=== PATIENT | female | born 1990 | race Caucasian/White ===

== ENCOUNTER 2016-10-26 21:09 | Emergency (ER) | payer MEDICAID, OTHER ==
[2016-10-26] MEDS ORDERED: Sodium Chloride 0.9% 1,000 ML IV ONE (21:28)
--- NOTE | 2016-10-26 21:28 | ED Physician Chart ---
Chief Complaint/HPI - Patient Information Date Seen:: 10/26/16 Time Seen:: 21:20 Chief Complaint:: Flank Pain History of Present Illness:: onset x 3 days of intermittent bilateral, crampy type flank pain radiating to the Abdomen with nausea; pt is 6 weeks ; pt denies H/As, Neck Pain, C/P , SOB, cough, Abd. Pain, pelvic pain, vaginal bleeding or discharge, A/V/D/C, fever, chills, or urinary s/s Historian:: Patient Review:: Nurse's Note Reviewed Review of Systems - Review of Systems General/Constitutional: Fever, Chills, No weight loss, No weakness, No diaphoresis, No edema, No loss of appetite Skin: No skin lesions, No rash, No bruising Head: No headache, No light-headedness Eyes: No loss of vision, No pain, No diplopia ENT: No earache, No nasal drainage, No sore throat, No tinnitus Neck: No neck pain, No swelling, No thyromegaly, No stiffness, No mass noted Cardio Vascular: No chest pain, No palpitations, No PND, No orthopnea, No edema Pulmonary: No SOB, No cough, No sputum, No wheezing GI: Nausea, Vomiting, Diarrhea, Pain, No melena, No hematochezia, Constipation, No hematemesis G/U: No dysuria, Frequency, No hematuria Reactor Technician: No vaginal discharge, No abnormal vaginal bleed, No contraction Musculoskeletal: No bone or joint pain, No back pain, No muscle pain Endocrine: No polyuria, No polydipsia Psychiatric: No prior psych history, No depression, No anxiety, No suicidal ideation, No homicidal ideation, No auditory hallucination, No visual hallucination Hematopoietic: No bruising, No lymphadenopathy Allergic/Immuno: No urticaria, No angioedema Neurological: No syncope, No focal symptoms, No weakness, No paresthesia, No headache, No seizure, No dizziness, No confusion, No vertigo Past Medical History - Past Medical History Obtainable: Yes Past Medical History: No significant medical hx Family History: HTN Social History: Non Smoker, No Alcohol, No Drug Use, Single Surgical History: other (Right Ovarian Cysts Removal) Psychiatricy History: None Medication: Reviewed Family Medical History - Family Member Mother History Unknown: Yes Physical Exam - Physical Examination General/Constitutional: Awake, Well-developed, well-nourished, Alert, No distress, GCS 15, Non-toxic appearing, Ambulatory Head: Atraumatic Eyes: Lids, conjuctiva normal, PERRL, EOMI Skin: Nl inspection, No rash, No skin lesions, No ecchymosis, Well hydrated, No lymphadenopathy ENMT: External ears, nose nl, Nasal exam nl, Lips, teeth, gums nl Neck: Nontender, Full ROM w/o pain, No JVD, No nuchal rigidity, No bruit, No mass, No stridor Respiratory: Nl effort/Exclusion, Clear to Auscultation, No Wheeze/Rhonchi/Rales Cardio Vascular: RRR, No murmur, gallop, rubs, NL S1 S2 GI: No tenderness/rebounding/guarding, No organomegaly, No hernia, Normal BS's, Nondistended, No mass/bruits, No McBurney tenderness : No CVA tenderness Extremities: No tenderness or effusion, Full ROM, normal strength in all extremities, No edema, Normal digits & nails Neuro/Psych: Alert/oriented, DTR's symmetric, Normal sensory exam, Normal motor strength, Judgement/insight normal, Mood normal, Normal gait, No focal deficits Misc: normal gait, Normal back, No paraspinal tenderness Labs/Radiology/EKG Results - Lab Results Results: U/A: + Leukocytes; + WBCs; + RBC, trace Blood - Radiology Results Results: + Twin ED Septic Shock - . Is Septic Shock (SBP<90, OR Lactate>4 mmol\L) present?: No Reassessment (Disposition) - Reassessment Reassessment:: pt is asymptomatic upon discharge Reassessment Condition:: Improved - Diagnosis Diagnosis:: UTI; ; Abdominal Pain/Flank/Back Pain-Resolved; Nephrolithiasis; Renal Calculi; Hematuria; Cystitis - Aftercare/Follow up Instructions Aftercare/Follow-Up Instructions:: Counseled pt regarding lab results/diagnosis & need follow up, Refer to Discharge Instructions, Counseled pt & family regarding lab results/diagnosis & need follow up Medication Prescribed:: Rx: Macrobid 100mg po bid x 10 days; Strain all Urine; Urine Strainer - Patient Disposition Discharge/Transfer:: Home Condition at Disposition:: Stable, Improved (RTER prn if existing s/s reoccur and/or get worse and/or any other new s/s occur; U/S care Instructions; ACIs given for all above Dx; Refer to OB-PRESTIDIGITATOR / Specialists/Field Operations Farm Manager LORRAINE; F/U with PMD in one day or prn; RTER prn if concerned)
[2016-10-26 21:45] LABS: % BASOPHILS 0.4 % (0.0-2.0); % EOSINOPHILS 2.1 % (0.0-5.0); % LYMPHOCYTES 30.4 % (20.0-50.0); % MONOCYTES 8.3 % (2.0-10.0); % NEUTROPHILS 58.8 % (40.0-80.0); HEMATOCRIT 40.2 % (35.0-45.0); HEMOGLOBIN 13.5 gm/dL (11.7-15.5); MEAN CELL VOLUME 82.7 fl (81-100); MEAN CORPUSCULAR HEMOGLOBIN 27.7 pg (27.0-31.0); MEAN CORPUSCULAR HGB CONC 33.5 pg (28.0-36.0); MEAN PLATELET VOLUME 9.3 fl; NEUTROPHILE ABSOLUTE 6.9 Th/cmm (1.8-8.0); PLATELET COUNT 268 Th/cmm (150-400); RED BLOOD COUNT 4.86 Mil/cmm (3.80-5.10); WHITE BLOOD COUNT 11.6 Th/cmm (4.8-10.8)
[2016-10-26 21:51] LABS: URINE BILIRUBIN NEGATIVE (NEGATIVE); URINE BLOOD TRACE (NEGATIVE); URINE GLUCOSE (UA) NEGATIVE (NEGATIVE); URINE KETONE NEGATIVE (NEGATIVE); URINE PH 6.5 (4.6 - 8.0); URINE PROTEIN NEGATIVE (NEGATIVE); URINE UROBILINOGEN 0.2 E.U./dL (0.2 - 1.0)
[2016-10-26 22:00] LABS: AMYLASE SERUM 49 U/L (29-103); ANION GAP 9.5 (7.0-16.0); BUN - UREA NITROGEN 6 mg/dL (7-25); CALCIUM SERUM 9.7 mg/dL (8.6-10.3); CARBON DIOXIDE 23.3 mEq/L (21.0-31.0); CHLORIDE 104 mEq/L (98-107); CREATININE - SERUM 0.4 mg/dL (0.6-1.2); GLUCOSE 125 mg/dL (70-105); LIPASE 11 U/L (11-82); POTASSIUM SERUM 3.8 mEq/L (3.5-5.1); SODIUM SERUM 133 mEq/L (136-145)
[2016-10-26 22:08] LABS: URINE COLOR YELLOW; URINE RBC 0-2 /hpf (0-5)
[2016-10-26 22:09] LABS: URINE BACTERIA OCCASIONAL /hpf (NONE SEEN); URINE EPITHELIAL CELLS MANY /lpf (FEW)
--- NOTE | 2016-10-27 09:41 | Diagnostic Imaging Report ---
Exam: Ultrasound examination of the pelvis HISTORY: Abdominal pelvic flank pain Findings: Real-time ultrasound summation of pelvis was performed utilizing transvaginal technique. The study demonstrates 2 small lucencies within the uterus measuring 1.6 cm on the right side and 1.3 cm and left side. The right lucency might represent early gestational sac with the yolk sac. pole is not visualized. The left lucency shows no evidence of for yolk sac or pole. Intrauterine anomaly or duplication of uterus cannot be excluded. Follow-up dictation recommended Adnexa is normal the ovaries intact. Right ovary measures 2.4 x 1.7 x 1.2 cm left ovary measures 2.1 x 2 x 1.2 cm. No free fluid is noted in cul-de-sac. IMPRESSION: Somewhat limited examination. 2 lucencies observed in the uterus on the right side containing a small yolk sac without pole or cardiac activity. Early gestation cannot be excluded. The second lucency is free of sac or pole. Follow-up examination see hCG titers recommended.
== END 2016-10-27 00:43 | disposition home or self-care (01) ==
LOC: ER 21:09
DX: O23.41 Unspecified infection of urinary tract in pregnancy, first trimester (principal); O26.891 Other specified pregnancy related conditions, first trimester; O23.11 Infections of bladder in pregnancy, first trimester; N20.0 Calculus of kidney; Z3A.01 Less than 8 weeks gestation of pregnancy
CPT/HCPCS: 36415-UA; 76811-TC; 80048-TC; 81001-TC; 81025-TC; 82150-TC; 83690-TC; 84703-TC; 85025-TC; J7030